=== PATIENT | male | born 1955 | race Caucasian/White ===

== ENCOUNTER 2017-01-20 17:29 | Emergency (ER) | payer OTHER ==
--- NOTE | ~2017-01-20 | ER ---
PATIENT'S NAME: [facility] AGE: 61 Y [address] ROOM: [place] [address] LOCATION: [facility] ADMIT DATE: 01/20/2017 ER/Outpatient Report DISCHARGE DATE: 01/20/2017 FAMILY PHYSICIAN: Piedad Khan ATTENDING PHYSICIAN: Anisha Knight Time of Arrival: 1729 hours. Time of Evaluation: 1729 hours. CHIEF COMPLAINT: Possible stroke. HISTORY OF PRESENT ILLNESS: The patient is a 61-year-old male who presents to the emergency department today with chief complaint of possible stroke. Apparently 2 hours prior to arrival, the patient developed some tingling in his upper lip as well as bilateral hand, primarily in his little finger and ring finger on left and right hand. He reports he had a mild headache as well, just "a little headache." He does report he felt very dizzy after lunch. He denies room spinning. He took an aspirin. This all did occur at rest. He does report he was diagnosed with sinus infection on Wednesday with fluid behind his ears. He has irritation of his mouth as well. He reports some nausea, no vomiting. No diarrhea or constipation. No chest pain. No shortness of breath. He does have mild headache frontally. PAST MEDICAL HISTORY: Previous brain bleed from, what he reports to be high blood pressure, hypertension, multiple myeloma. PAST SURGICAL HISTORY: Gallbladder hernia. SOCIAL HISTORY: The patient denies any tobacco use. Reports social alcohol use. Denies any illicit drug use. ALLERGIES: NO KNOWN DRUG ALLERGIES. MEDICATIONS: 1. Aspirin. 2. Losartan. 3. Lunesta. PRIMARY CARE DOCTOR: PATIENT'S NAME: [facility] AGE: 61 Y [address] ROOM: [place], [place] [address] LOCATION: [facility] ADMIT DATE: 01/20/2017 ER/Outpatient Report DISCHARGE DATE: 01/20/2017 FAMILY PHYSICIAN: Piedad Khan ATTENDING PHYSICIAN: Anisha Knight PA. REVIEW OF SYSTEMS: All systems are reviewed by myself and negative with the exception of those discussed in HPI and past medical history. PHYSICAL EXAMINATION: VITAL SIGNS: Weight 76.7 kg, blood pressure 186/105, pulse 97, respiratory rate 16, temperature 98.7, oxygen saturation 97% on room air. GENERAL: The patient is a 61-year-old male, appears stated age. Well developed, well nourished, in no acute distress at this time. HEENT: Head: Normocephalic, atraumatic. Pupils are equal, round, and reactive to light and accommodation. Extraocular motions are intact. Nares are patent bilaterally. TMs are clear. Oropharynx is clear. NECK: Supple. There is no nuchal rigidity. CARDIOVASCULAR: Regular rate and rhythm. No murmurs, rubs, or gallops. LUNGS: Clear to auscultation bilaterally. No wheezes, rales, or rhonchi. ABDOMEN: Soft, nontender, and nondistended. No rebound, rigidity, or guarding. MUSCULOSKELETAL: The patient moves all 4 extremities. 5/5 muscle strength. NEUROLOGICAL: GCS of 15. Alert and oriented x4. Cranial nerves 2 through 12 are intact. Normal facial sensation. No facial asymmetry. Normal tongue movement. Normal shoulder shrug. Equal financial planning analyst strength bilaterally. No pronator drift. Normal finger to nose. Normal rapid hand movement. Normal [id number], downward going toes. No clonus. 2/4 reflexes. SKIN: Warm and dry. There are no rashes or lesions noted. LABORATORY DATA AND X-RAYS: EKG is obtained, is interpreted by myself, shows sinus rhythm with a rate of 95, normal axis, normal interval. No ST elevation, ST depression, or T-wave inversion. CBC is normal. CMP is normal. Troponin is less than 0.04. INR is 0.89. CT scan of the brain is obtained. I have discussed results with the radiologist, shows no acute process. IMPRESSION: 1. Dizziness unspecified. 2. Elevated blood pressure. 3. Initial visit. EMERGENCY DEPARTMENT COURSE: The patient was brought back to the examination room. Initially seen just before shift change by Dr. Knight. Stroke order set is ordered. I did discuss the case with her at shift change. I did see and evaluate the patient as described above. The patient has minimal symptoms at this time with some vague dizziness and some odd numbness in his lip and the ulnar distribution in PATIENT'S NAME: [facility] AGE: 61 Y [address] ROOM: [place] [address] LOCATION: [facility] ADMIT DATE: 01/20/2017 ER/Outpatient Report DISCHARGE DATE: 01/20/2017 FAMILY PHYSICIAN: Piedad Khan ATTENDING PHYSICIAN: Anisha Knight bilateral arms. He does not have any back pain. He is up, ambulating throughout the emergency department. The patient was given 20 mg of labetalol IV which resulted in improvement in the patient's blood pressure. He does report he has not been taking his blood pressure like he has been prescribed. I have discussed with him the importance of this, especially with his history of brain bleed. I have asked that he follows up with Dr. Piedad Khan tomorrow for re-evaluation. We have given him a losartan 100 mg p.o. as well. I have discussed return to care instructions including worsening symptoms, slurred speech, facial droop, arm weakness, or any other concerns to return to the emergency department as soon as possible. The patient certainly has been undergoing quite a bit of stress recently as he and his are in the process of divorce. DISPOSITION: The patient is discharged to home with instructions for close followup in good condition. DO OMAR TRAN/modl /[id number] P d: 01/21/17 0016 t: 01/22/17 0549, OUTPATIENT REPORT
--- NOTE | ~2017-01-20 | ER ---
PATIENT'S NAME: [facility] AGE: 61 Y [address] ROOM: [place] [address] LOCATION: [facility] ADMIT DATE: 01/20/2017 ER/Outpatient Report DISCHARGE DATE: 01/20/2017 FAMILY PHYSICIAN: Piedad Khan ATTENDING PHYSICIAN: Anisha Payton Time of Arrival: 17:29. Time Seen: 17:29. IDENTIFICATION: A 61-year-old male. CHIEF COMPLAINT: Possible stroke. HISTORY OF PRESENT ILLNESS: The patient is a 61-year-old male, who presents to the emergency room complaining of possible stroke. The patient has had numbness of his upper lip, dizziness, and numbness in both little fingers for approximately two hours. He did wake up with a headache this morning, but currently denies any headache. The patient has had a previous hemorrhagic stroke treated at [facility] by Dr. Morales approximately ten years ago. He did not have an aneurysm. No coiling. No surgeries. It was medically managed in the ICU according to the patient and his . He has had no residual from that stroke. ALLERGIES: NO KNOWN DRUG ALLERGIES. CURRENT MEDICATIONS: 1. Aspirin p.r.n. He did take a full-strength aspirin at 16:30. 2. Losartan 100 mg daily. 3. Lunesta 2 mg at bedtime. 4. Zyrtec 10 mg daily. MEDICAL PROBLEMS: 1. Previous hemorrhagic stroke. 2. Hypertension. 3. Multiple myeloma. PRIOR SURGERIES: 1. Cholecystectomy. 2. Hernia repair. SOCIAL HISTORY: PATIENT'S NAME: [facility] AGE: 61 Y [address] ROOM: [place] [address] LOCATION: [facility] ADMIT DATE: 01/20/2017 ER/Outpatient Report DISCHARGE DATE: 01/20/2017 FAMILY PHYSICIAN: Piedad Khan ATTENDING PHYSICIAN: Anisha Payton The patient lives in [place]. He is a spaulding. He is currently having some stress and is going through a divorce. Tobacco use, denies. Alcohol use, socially. Drug use, denies. FAMILY HISTORY: No pertinent family history was identified. REVIEW OF SYSTEMS: All systems were reviewed and are negative other than what is noted in the HPI. A stroke alert was called, and patient was evaluated. PHYSICAL EXAMINATION: VITAL SIGNS: Height is 5 feet 11 inches and weight is 76.7 kg. Blood pressure was 186/105, pulse was 97, respirations were 16, temperature was 98.7, and saturations were 97%. GENERAL: A 61-year-old male, in no acute distress. HEENT: Head: Normocephalic and atraumatic. Eyes: Pupils are equal and reactive to light and accommodation. Extraocular movements are intact. Nose: Mucosa was pink. No lesions or drainage. Mouth: No lesions. Pharynx is benign. NECK: Supple. No lymphadenopathy. No nuchal rigidity. No carotid bruits. LUNGS: Clear to auscultation. HEART: Regular rate and rhythm. ABDOMEN: Soft, nondistended, and nontender. SKIN: [place], warm, and dry. No lesions or rashes were noted. NEUROLOGICAL: The patient is alert and oriented x4. Cranial nerves II through XII were grossly intact. Motor strength was 5/5 throughout. Sensation is intact to light touch. EXTREMITIES: No lower extremity edema. No calf tenderness. EMERGENCY DEPARTMENT COURSE: NIH Stroke Scale score is zero, and a copy is included in the chart. The patient was taken for head CT. It is shift change and Dr. Le will assume care at this point. ANISHA PAYTON MD CAR/modl PATIENT'S NAME: [facility] AGE: 61 Y [address] ROOM: [place] [address] LOCATION: [facility] ADMIT DATE: 01/20/2017 ER/Outpatient Report DISCHARGE DATE: 01/20/2017 FAMILY PHYSICIAN: Piedad Khan ATTENDING PHYSICIAN: Anisha Payton /[id number] d: 01/21/172230 t: 01/23/17 1500, OUTPATIENT REPORT
[2017-01-20 17:53] LABS: BASOPHIL % 0.4 %; EOSINOPHIL % 0.3 %; HEMATOCRIT 46.1 % (37.0-53.0); IMMATURE GRANULOCYTE % 0.4 %; LYMPHOCYTE % 9.6 %; MCH 33.2 pg (27.0-34.0); MCHC 34.7 gm/dL (32.0-36.5); MCV 95.6 fl (83.0-98.0); MONOCYTE # 0.8 K/uL (0.0-1.0); MONOCYTE % 7.7 %; MPV 8.8 fl (9.4-12.4); NEUTROPHIL # (ANC) 8.5 K/uL (1.4-9.0); NEUTROPHIL % 81.6 %; NRBC % 0 /100WBC (0-0.00); PLATELET COUNT 190 K/uL (150-450); RBC 4.82 M/uL (3.50-5.50); RDW-CV 12.4 % (11.9-14.6); WBC 10.4 K/uL (4.0-11.0)
[2017-01-20 18:02] LABS: INR - (THERAPEUTIC) 0.89 (0.92-1.07); PROTIME 9.3 SECONDS (9.8-11.4); PTT 27 SECONDS (25-32)
[2017-01-20 18:08] LABS: ALBUMIN 3.9 gm/dL (3.5-5.0); ANION GAP 11.1 (10.0-19.0); CREATININE 1.1 mg/dL (0.6-1.3); PHOSPHORUS 2.1 mg/dL (2.5-4.9); POTASSIUM 4.1 mMol/L (3.7-5.1)
== END 2017-01-20 19:23 | disposition disaster alternative care site (69) ==
LOC: GMED 17:29
PROVIDERS: Family Medicine
DX: I10 Essential (primary) hypertension (principal); C90.00 Multiple myeloma not having achieved remission; Z79.82 Long term (current) use of aspirin; Z79.899 Other long term (current) drug therapy